=== PATIENT | female | born 1960 | race Caucasian/White ===

== ENCOUNTER 2018-09-21 10:30 | Inpatient (IN) | payer OTHER ==
[~2018-09-21 10:30] MED LIST: CELECOXIB 100 MG CAP PO ONE; LACTATED RINGERS 1,000 ML IV ONE; LACTATED RINGERS 1,000 ML IV SCH; SCOPOLAMINE 1.5MG PATCH TD SCH
[2018-09-21] MEDS ORDERED: CELECOXIB 100 MG CAP PO ONE (11:00)
[2018-09-21] MEDS ORDERED: SCOPOLAMINE 1.5MG PATCH TD SCH (11:00)
[2018-09-21] MEDS ORDERED: LACTATED RINGERS 1,000 ML IV ONE (11:30)
[2018-09-21] MEDS: SODIUM CHLORIDE 0.9% FLUSH 10 ML SOL IV PRN (11:39)
[2018-09-21] MEDS ORDERED: TRANEXAMIC ACID 100 MG/ML SOL ONE (12:00)
[2018-09-21] MEDS ORDERED: MIDAZOLAM 2 MG/2 ML SOL ONE (12:09)
[2018-09-21] MEDS ORDERED: PROPOFOL 500 MG/50 ML EMU IV ONE (12:09)
[2018-09-21] MEDS ORDERED: MORPHINE SULFATE 0.5 MG/ML SOL ONE (12:09)
[2018-09-21] MEDS ORDERED: KETAMINE HYDROCHLORIDE 50 MG/ML SOL ONE (12:09)
[2018-09-21] MEDS ORDERED: ONDANSETRON HCL 4 MG/2 ML SOL ONE (12:12)
[2018-09-21] MEDS ORDERED: DEXAMETHASONE 20 MG/5 ML (4 MG/ML SOL) ONE (12:12)
[2018-09-21] MEDS ORDERED: SODIUM CHLORIDE 20 ML 20 ML ONE (12:12)
[2018-09-21] MEDS ORDERED: METOCLOPRAMIDE HYDROCHLORIDE 5 MG/ML SOL ONE (12:12)
[2018-09-21] MEDS ORDERED: CEFAZOLIN SODIUM 1 GM PDS ONE ×2 (12:12→20:46)
[2018-09-21] MEDS ORDERED: LACTATED RINGERS 1,000 ML IV SCH (12:30)
[2018-09-21] MEDS: BUPIVACAINE HCL 0.25% MPF 30 ML SOL INFIL ONE ×2 (13:52→14:25)
[2018-09-21] MEDS: BUPIVACAINE LIPOSOME 20 ML SUS ONE ×3 (13:52→14:25)
[2018-09-21] MEDS ORDERED: PROPOFOL 10 MG/ML 200 MG/20 ML EMU IV ONE (14:25)
[2018-09-21] MEDS ORDERED: MORPHINE SULFATE 10 MG/ML SOL IV PRN (15:00)
[2018-09-21] MEDS ORDERED: ONDANSETRON 4 MG ODT BU PRN (15:00)
[2018-09-21] MEDS ORDERED: SODIUM CHLORIDE 0.9% 500 ML 500 ML IV PRN (15:00)
[2018-09-21] MEDS ORDERED: ACETAMINOPHEN 325 MG PO PRN (15:00)
[2018-09-21] MEDS: APAP/HYDROCODONE 1 EACH TABLET PO PRN ×3 (16:55→22:08)
[2018-09-21] MEDS: DEXTROSE/SALINE 0.45/KCL 20MEQ 1,000 ML/1,000 ML SOL IV SCH (16:59)
[2018-09-21] MEDS ORDERED: ALBUTEROL HFA 60 PUFF/INHALER INH PRN (17:06)
[2018-09-21] MEDS: SODIUM CHLORIDE 0.9% FLUSH 10 ML SOL IV SCH (19:57)
[2018-09-21] MEDS ORDERED: SODIUM CHLORIDE 0.9% 100 ML 100 ML IV ONE (20:46)
[2018-09-21] MEDS: SENNOSIDES A AND B 8.6 MG TAB PO SCH (20:58)
[2018-09-21] MEDS ORDERED: FLUTICASONE/SALMETEROL 250/50 1 PUFF DSK INH PRN (21:00)
[2018-09-21] MEDS: CEFAZOLIN SODIUM 1 GM PDS 2 GM in SODIUM CHLORIDE 0.9% 100 ML 100 ML IV SCH (21:03)
[2018-09-22] MEDS: SODIUM CHLORIDE 0.9% FLUSH 10 ML SOL IV SCH ×4 (01:21→22:38)
[2018-09-22] MEDS: APAP/HYDROCODONE 1 EACH TABLET PO PRN ×5 (03:52→21:21)
[2018-09-22] MEDS: DEXTROSE/SALINE 0.45/KCL 20MEQ 1,000 ML/1,000 ML SOL IV SCH ×2 (04:25→11:48)
[2018-09-22] MEDS ORDERED: SODIUM CHLORIDE 0.9% 100 ML 100 ML IV ONE (04:52)
[2018-09-22] MEDS ORDERED: CEFAZOLIN SODIUM 1 GM PDS ONE (04:52)
[2018-09-22] MEDS: CEFAZOLIN SODIUM 1 GM PDS 2 GM in SODIUM CHLORIDE 0.9% 100 ML 100 ML IV SCH (05:17)
[2018-09-22] MEDS: SODIUM CHLORIDE 0.9% FLUSH 10 ML SOL IV PRN (05:17)
[2018-09-22 07:28] LABS: HEMOGLOBIN 11.6 gm/dl (12.0-15.5); MEAN CORPUSCULAR HEMOGLOBIN 30.1 pg (27.0-32.0); MEAN CORPUSCULAR HGB CONC 32.9 gm/dl (32.0-36.0)
[2018-09-22] MEDS: FERROUS GLUCONATE 324 MG TABLET PO SCH (08:26)
[2018-09-22] MEDS: FAMOTIDINE 20 MG TAB PO SCH (08:26)
[2018-09-22] MEDS: FLUTICASONE PROPIONATE SPR NAS SCH (08:29)
[2018-09-22] MEDS: RIVAROXABAN 10 MG TAB PO SCH (08:33)
[2018-09-22] MEDS: SENNOSIDES A AND B 8.6 MG TAB PO SCH (21:21)
[2018-09-23] MEDS: APAP/HYDROCODONE 1 EACH TABLET PO PRN ×6 (01:19→22:52)
[2018-09-23 07:30] LABS: HEMOGLOBIN 11.3 gm/dl (12.0-15.5); MEAN CORPUSCULAR HEMOGLOBIN 29.7 pg (27.0-32.0)
[2018-09-23] MEDS: SODIUM CHLORIDE 0.9% FLUSH 10 ML SOL IV SCH (08:17)
[2018-09-23] MEDS: FERROUS GLUCONATE 324 MG TABLET PO SCH (09:49)
[2018-09-23] MEDS: RIVAROXABAN 10 MG TAB PO SCH (09:50)
[2018-09-23] MEDS: FAMOTIDINE 20 MG TAB PO SCH (09:51)
[2018-09-23] MEDS: FLUTICASONE PROPIONATE SPR NAS SCH (09:52)
[2018-09-23] MEDS: DIAZEPAM 5 MG TAB PO PRN (12:14)
[2018-09-23] MEDS: SENNOSIDES A AND B 8.6 MG TAB PO SCH (20:48)
[2018-09-24] MEDS: APAP/HYDROCODONE 1 EACH TABLET PO PRN ×5 (06:30→22:49)
[2018-09-24 07:40] LABS: HEMOGLOBIN 12.1 gm/dl (12.0-15.5); MEAN CORPUSCULAR HEMOGLOBIN 29.2 pg (27.0-32.0); MEAN CORPUSCULAR HGB CONC 31.6 gm/dl (32.0-36.0)
[2018-09-24] MEDS: FERROUS GLUCONATE 324 MG TABLET PO SCH (08:58)
[2018-09-24] MEDS: FAMOTIDINE 20 MG TAB PO SCH (08:58)
[2018-09-24] MEDS: RIVAROXABAN 10 MG TAB PO SCH (08:58)
[2018-09-24] MEDS ORDERED: MAGNESIUM HYDROXIDE 30 ML SUS PO PRN (09:00)
[2018-09-24] MEDS: FLUTICASONE PROPIONATE SPR NAS SCH (09:00)
[2018-09-24] MEDS: POLYETHYLENE GLYCOL 17 GM/1 TBS PDS PO PRN (10:23)
[2018-09-24] MEDS: LISINOPRIL 5 MG TAB PO SCH (10:23)
[2018-09-24] MEDS: DIAZEPAM 5 MG TAB PO PRN ×2 (12:43→21:22)
[2018-09-24] MEDS: SENNOSIDES A AND B 8.6 MG TAB PO SCH (21:23)
[2018-09-25] MEDS: APAP/HYDROCODONE 1 EACH TABLET PO PRN ×4 (05:17→17:33)
[2018-09-25] MEDS: DIAZEPAM 5 MG TAB PO PRN ×2 (08:15→15:04)
[2018-09-25] MEDS: RIVAROXABAN 10 MG TAB PO SCH (08:16)
[2018-09-25] MEDS: FERROUS GLUCONATE 324 MG TABLET PO SCH (08:16)
[2018-09-25] MEDS: FAMOTIDINE 20 MG TAB PO SCH (08:16)
[2018-09-25] MEDS: LISINOPRIL 5 MG TAB PO SCH (08:20)
[2018-09-25] MEDS: POLYETHYLENE GLYCOL 17 GM/1 TBS PDS PO PRN (08:20)
[2018-09-25] MEDS: FLUTICASONE PROPIONATE SPR NAS SCH (08:21)
[2018-09-25 17:14] VITALS: BP 131/80; PULSE 87; RESP 18; TEMP 98.1; O2SAT 99
== END 2018-09-25 17:50 | disposition home or self-care (01) | DRG 462 ==
LOC: ACUTE CARE 10:30
PROVIDERS: ADMIT Orthopaedic Surgery; ATTEND Orthopaedic Surgery
PROC: 0SRD0J9 Replacement of Left Knee Joint with Synthetic Substitute, Cemented, Open Approach (ICD-10-PCS; principal; 2018-09-22)
PROC: 0SRC0J9 Replacement of Right Knee Joint with Synthetic Substitute, Cemented, Open Approach (ICD-10-PCS; 2018-09-22)
PROC: F01ZDZZ Gait and/or Balance Assessment (ICD-10-PCS; 2018-09-22)
PROC: F02Z3ZZ Grooming/Personal Hygiene Assessment (ICD-10-PCS; 2018-09-22)
DX: M17.0 Bilateral primary osteoarthritis of knee (principal); M21.162 Varus deformity, not elsewhere classified, left knee; M21.161 Varus deformity, not elsewhere classified, right knee; Z96.653 Presence of artificial knee joint, bilateral; J45.30 Mild persistent asthma, uncomplicated; I10 Essential (primary) hypertension
CPT/HCPCS: 36415; 73560; 85027; 85049; 94150; 99070; J0690; J1100; J2250; J2274; J2405; J2765; A6232; A6402; A9270-GY; J2704; J3490; Q3014